=== PATIENT | female | born 1990 | race Caucasian/White ===

== ENCOUNTER 2025-04-16 17:47 | Emergency (ER) | payer OTHER, SELFPAY ==
[2025-04-16 18:02] VITALS: BP 122/79
--- NOTE | 2025-04-16 19:27 | ED.GENMED ---
History of Present Illness
General
Chief Complaint: Musculo-Skeletal Complaint
Source: patient
Exam Limitations: none
Time Seen by Provider: 04/16/25 19:15
Nursing documentation reviewed up to this point in time: agreed with
History of Present Illness
History of Present Illness:
34-year-old female presenting to the emergency department today after rolling her right ankle prior to arrival. Ongoing discomfort since. Has been able to walk but has been limping. Denies additional injuries denies numbness or weakness.
Review of Systems
Review of Systems
Allergies reviewed?: Yes
All Other Systems: ROS reviewed and negative except as documented in HPI and ROS
Phy Exam
Physical Exam
Physical Exam:
GENERAL: Alert , in no apparent distress
EYE: pupils equal and reactive
NECK: Supple, no significant adenopathy.
ENT: o/p clr, mmm.
CARDIAC: Regular rate and rhythm .
LUNGS: Clear breath sounds bilaterally, no acute respiratory distress, no wheezes/rales/rhonchi
ABDOMEN: Soft, without focal tenderness, no r/g, no cvat
NEUROLOGICAL: Alert and oriented, no focal neuro deficits
SKIN: Warm and dry, skin intact.
MUSCULOSKELETAL: Mild edema to the right lateral malleolus region mainly to the aspect anterior to the lateral malleolus no tenderness to the posterior lateral malleolus no tenderness to the foot or the base of the fifth metatarsal no tenderness to
the forefoot uhi or knee., well perfused.
PSYCH: Normal and appropriate interaction.
Course
Orders/Labs/Results
Orders:
Orders
04/16/25 18:01
Ankle, Right 3 view CR [CR Ankle - Right Min 3 Views *] Urgent
Comment:
Reason For Exam: rolled ankle. pain/swelling
04/16/25 19:27
Tarun Wrap Right-Treatment ONCE
Vital Signs
Initial and Last Documented VS:
Initial Vital Signs
Temp Pulse Resp BP Pulse Ox
98.3 F 66 17 122/79 99
04/16/25 18:02 04/16/25 18:02 04/16/25 18:02 04/16/25 18:02 04/16/25 18:02
Last Documented Vital Signs
Temp Pulse Resp BP Pulse Ox
98.3 F 66 17 122/79 99
04/16/25 18:02 04/16/25 18:02 04/16/25 18:02 04/16/25 18:02 04/16/25 18:02
MDM/Problems Addressed
MDM/Problems Addressed:
34-year-old female present to department today with concerns of twisting her ankle prior to arrival. Has been limping since. But has been able to ambulate. X-ray without signs of fracture here. Tenderness mainly to the area just anterior to the
lateral malleolus consistent with likely ankle sprain. Advised to RICE and follow-up with Ortho as needed. Return precautions given.
*Critical Care Note
Total Time (30-74mins, 75-104mins- exclusive of procedures): Not Applicable
ED Attending Note
-
Portions of this chart may have been created with voice recognition software.� Occasional wrong word or��sound alike� substitutions may have occurred due to the inherent limitations of voice recognition software.
Discharge Plan
Departure
Patient Disposition: Home (Routine Discharge)
Date of Disposition: 04/16/25
Time of Disposition: 19:39
Patient with high blood pressure during this ER visit?: No
Condition: Good
Discharge Problem:
Ankle sprain
Instructions: Sprain (DC)
Referrals:
Justus Garcia MD [Active, Orthopedics]
Activity Restrictions/Additional Instructions:
You came to the emergency department today with concerns of an ankle sprain. Please rest ice compress and elevate and follow-up with Ortho as needed. Return for any worsening, new or concerning symptoms.
Interventions
Interventions:
*Risk Screen - Suicide Last Done: 04/16/25 18:03
*General Assessment Last Done: 04/16/25 18:03
*Neglect/Abuse Screening Last Done: 04/16/25 18:03
*ED COVID-19 Vaccine History Last Done: 04/16/25 18:03
ED-Musculoskeletal Assessment Last Done: 04/16/25 19:19
Discharge Date and Time
Print Language: SINHALA
== END 2025-04-16 19:57 | disposition home or self-care (01) ==
LOC: EMR 17:47
PROVIDERS: EMERGENCY PHYSICIAN Emergency Medicine; FAMILY PHYSICIAN Physician Assistant Medical
DX: S93.401A Sprain of unspecified ligament of right ankle, initial encounter (principal); X50.1XXA Overexertion from prolonged static or awkward postures, initial encounter
CPT/HCPCS: 99283; 73610